=== PATIENT | female | born 2000 | race African-American/Black ===

== ENCOUNTER 2021-06-17 01:41 | Emergency (ER) | payer BC ==
[~2021-06-17] VITALS: Ht 172.7 cm; Wt 117.0 kg
[2021-06-17 01:51] VITALS: BP 142/76
--- NOTE | 2021-06-17 01:58 | NUR ---
patient to the bathroom for urine collection
--- NOTE | 2021-06-17 02:30 | NUR ---
seen by CHRYSTAL no nursing interventions needed for patient
[2021-06-17] MEDS ORDERED: SULF-59 PO (03:03)
[2021-06-17 03:25] VITALS: BP 139/78
--- NOTE | 2021-06-17 03:25 | NUR ---
Patient discharged with v/s stable. Written and verbal after care instructions given and explained. Patient alert, oriented and verbalized understanding of instructions. Ambulatory with steady gait. All questions addressed prior to discharge. ID band removed. Patient advised to follow up with PMD. Rx of Bactrim Ds tab given. Patient educated on indication of medication including possible reaction and side effects. Opportunity to ask questions provided and answered.
== END 2021-06-17 03:25 | disposition home or self-care (01) ==
LOC: MED 01:41
DX: L73.9 Follicular disorder, unspecified (principal); Z79.2 Long term (current) use of antibiotics; Z88.0 Allergy status to penicillin
CPT/HCPCS: 81002; 81025; 99283